=== PATIENT | female | born 1940 | race Caucasian/White ===

== ENCOUNTER → 2023-06-23 | Outpatient (CLI) | payer MEDICARE ==
[~2023-06-23] MED LIST: BUSP5 PO; ELIQUIS5 M2 PO; FURO20 PO; JARDIANCE10 MG PO; LEVSOD100 PO; LEVSOD75 PO; Lisinopril2.5 MG PO; METO25 PO; METO25ER PO; POTCIT10; ROSU10TA PO; ZYRTEC10 M2 PO
[2023-06-23 19:28] LABS: Albumin, Blood 3.5 g/dL (3.4-5.0); Anion Gap 9 mmol/L (3-11); Blood Urea Nitrogen 29 mg/dL (8-24); Bun/Creatinine Ratio 27.1 (12.0-20.0); CO2, Blood 31 mmol/L (21-32); Calcium, Blood 9.1 mg/dL (8.5-10.1); Chloride, Blood 102 mmol/L (98-108); Creatinine, Blood 1.07 mg/dL (0.40-1.00); Glomerular Filtration Rate 51 (60-); Glucose, Blood 100 mg/dL (70-99); Phosphorus, Blood 4.3 mg/dL (2.5-4.9); Potassium, Blood 3.4 mmol/L (3.5-5.5); Sodium, Blood 139 mmol/L (136-145)
== END ==
LOC: LAB SHORT 17:43 → LAB 17:43
PROVIDERS: Internal Medicine
DX: I50.22 Chronic systolic (congestive) heart failure (principal)
CPT/HCPCS: 80069; 83880

== ENCOUNTER → 2023-07-06 | Outpatient (CLI) | payer MEDICARE ==
[2023-07-06 15:39] LABS: Albumin, Blood 3.5 g/dL (3.4-5.0); Anion Gap 7 mmol/L (3-11); Blood Urea Nitrogen 30 mg/dL (8-24); Bun/Creatinine Ratio 29.4 (12.0-20.0); CO2, Blood 32 mmol/L (21-32); Calcium, Blood 8.9 mg/dL (8.5-10.1); Chloride, Blood 103 mmol/L (98-108); Creatinine, Blood 1.02 mg/dL (0.40-1.00); Free Thyroxine 1.31 ng/dL (0.70-1.60); Glomerular Filtration Rate 54 (60-); Glucose, Blood 106 mg/dL (70-99); Phosphorus, Blood 4.3 mg/dL (2.5-4.9); Potassium, Blood 4.1 mmol/L (3.5-5.5); Sodium, Blood 138 mmol/L (136-145); Triiodothyronine, Free 2.52 pg/mL (2.18-3.98)
== END ==
LOC: LAB 14:16 → LAB SHORT 14:16
PROVIDERS: Internal Medicine
DX: E03.9 Hypothyroidism, unspecified (principal); I50.22 Chronic systolic (congestive) heart failure
CPT/HCPCS: 80069; 83880; 84439; 84443; 84481

== ENCOUNTER → 2023-09-01 | Outpatient (CLI) | payer MEDICARE ==
[2023-09-01 15:46] LABS: Albumin, Blood 4.1 g/dL (3.4-5.0); Anion Gap 9 mmol/L (3-11); Blood Urea Nitrogen 35 mg/dL (8-24); Bun/Creatinine Ratio 26.7 (12.0-20.0); CO2, Blood 30 mmol/L (21-32); Calcium, Blood 9.3 mg/dL (8.5-10.1); Chloride, Blood 103 mmol/L (98-108); Creatinine, Blood 1.31 mg/dL (0.40-1.00); Glomerular Filtration Rate 40 (60-); Glucose, Blood 102 mg/dL (70-99); Phosphorus, Blood 4.6 mg/dL (2.5-4.9); Potassium, Blood 4.1 mmol/L (3.5-5.5); Sodium, Blood 138 mmol/L (136-145)
== END | disposition home or self-care (01) ==
LOC: LAB 13:45 → LAB SHORT 13:45
PROVIDERS: Internal Medicine
DX: E03.9 Hypothyroidism, unspecified (principal); E78.2 Mixed hyperlipidemia
CPT/HCPCS: 80069; 83880; 84443

== ENCOUNTER 2024-11-26 06:04 | Emergency (ER) | payer MEDICARE ==
[~2024-11-26] VITALS: Ht 165.1 cm; Wt 140.0 kg
[2024-11-26 07:15] VITALS: BP 117/52
[2024-11-26] MEDS ORDERED: Cephalexin Monohydrate 250 MG/5 ML UD BTL PO ONE (07:30)
[2024-11-26] MEDS ORDERED: Trimethoprim/Sulfamethoxazole DS Tab PO ONE (07:30)
[2024-11-26] MEDS ORDERED: SPIRONOLACTONE25 MG PO (07:34)
[2024-11-26] MEDS ORDERED: CEPH500 PO (07:36)
[2024-11-26] MEDS ORDERED: SULTRIDS PO (07:36)
== END 2024-11-26 07:50 | disposition home or self-care (01) ==
LOC: ER 06:04
DX: L03.114 Cellulitis of left upper limb (principal); Z79.01 Long term (current) use of anticoagulants; Z79.84 Long term (current) use of oral hypoglycemic drugs; Z79.890 Hormone replacement therapy; Z79.899 Other long term (current) drug therapy; E03.9 Hypothyroidism, unspecified; I48.91 Unspecified atrial fibrillation; I11.0 Hypertensive heart disease with heart failure; I50.9 Heart failure, unspecified
CPT/HCPCS: 99283; A9270